=== PATIENT | male | born 1950 | race Hispanic/Latino ===

== ENCOUNTER 2020-08-31 10:46 | Emergency (ER) | payer MEDICARE ==
[2020-08-31] MEDS ORDERED: SODIUM CHLORIDE 0.9% 1000 ML 1,000 ML IV ONE (11:09)
--- NOTE | 2020-08-31 11:20 | Emergency Department Report ---
HPI - General Chief Complaint: Nausea/Vomiting/Diarrhea Time Seen by Provider: 08/31/20 10:58 - HPI HPI: This is a 70-year-old male who presents to the emergency department via EMS from home with complaint of a 1 month history of diarrhea with some rectal bleeding, that worsened since last night. Since July 28 the patient has been having some episodes of diarrhea and initially he says that it looked like it was "coffee grounds" but had a reddish tint to it. He has seen his primary care physician, Dr. Josue, a gastroenterology PA from a different practice than he is used to, and then yesterday saw his personal manager car, Dr. Vidhya lawson. The patient had a CT scan of the abdomen and pelvis a few weeks ago through [facility] outpatient imaging that sounds like it was colitis, but he does not have the results with him. The patient was placed on prednisone which has not been helping his symptoms. He saw Dr. Malone yesterday and was told to come to the hospital and have blood work done. Since eating some food last night the patient says that he has had at least 20 episodes of diarrhea, often with bright red blood. He has crampy abdominal pain just before he has to use the bathroom and then it goes away for about 15 minutes before the cycle restarts. The patient says that he has lost greater than 30 pounds over the past month. He has a past medical history of hypertension. He is a former smoker but has not smoked cigarettes for 30 years. Denies any alcohol dependence or illicit drug use. The patient spent 1 week in [facility] at the end of July for the symptoms and for what sounds like electrolyte abnormalities. ED Past Medical Hx - Social History Smoking Status: Former Smoker Substance Use Type: None - Medications Home Medications: Home Medications Medication Instructions Recorded Confirmed Last Taken Type Ciprofloxacin HCl 500 mg PO BID #14 tablet 08/31/20 Unknown Rx Diphenoxylat-Atrop 2.5-0.025/5 2.5 mg PO 4XD PRN 08/31/20 08/31/20 08/31/20 His tory Diphenoxylate/Atropine [Lomotil] 1 tab PO Q6H PRN #20 tablet 08/31/20 Unknown Rx Valsartan-Hctz 80-12.5 mg Tab 80 mg PO DAILY 08/31/20 08/31/20 3 Days Ago History ~08/28/20 Zoloft 50 mg PO DAILY 08/31/20 08/31/20 08/31/20 History ED Review of Systems ROS: Stated complaint: COLITIS/DIARRHEA/RECTAL BLEEDING Other details as noted in HPI Comment: All other systems reviewed and negative Constitutional: denies: chills, fever Eyes: denies: eye pain, vision change ENT: denies: ear pain, throat pain Respiratory: denies: cough, shortness of breath Cardiovascular: denies: chest pain, palpitations Gastrointestinal: abdominal pain, nausea, vomiting Genitourinary: denies: dysuria, discharge Musculoskeletal: denies: back pain, arthralgia Skin: denies: rash, lesions Neurological: denies: headache, weakness Physical Exam - Physical Exam Vital Signs: Vital Signs 08/31/20 08/31/20 08/31/20 11:03 11:06 11:07 Temperature 99.3 F Pulse Rate 118 H Respiratory 18 18 Rate Blood Pressure 130/87 [Right] O2 Sat by Pulse 99 Oximetry Physical Exam: GENERAL: The patient is well-developed well-nourished. HENT: Normocephalic. Atraumatic. Patient has moist mucous membranes. EYES: Extraocular motions are intact. NECK: Supple. Trachea is midline. CHEST/LUNGS: Clear to auscultation. There is no respiratory distress noted. HEART/CARDIOVASCULAR: Regular. There is no tachycardia. There is no murmur. ABDOMEN: Abdomen is soft, nontender. Patient has hyperactive bowel sounds. There is no abdominal distention. SKIN: Skin is warm and dry. NEURO: The patient is awake, alert, and oriented. The patient is cooperative. The patient has no focal neurologic deficits. Normal speech. MUSCULOSKELETAL: There is no tenderness or deformity. There is no limitation range of motion. ED Course Vital Signs 08/31/20 08/31/20 08/31/20 11:03 11:06 11:07 Temperature 99.3 F Pulse Rate 118 H Respiratory 18 18 Rate Blood Pressure 130/87 [Right] O2 Sat by Pulse 99 Oximetry - Consultations Consultation #1: 08/31/20 16:[address] Juarez, the manager car on-call for [place] [facility]. We discussed the patient's presentation today, his recent history, his recent admission to [facility]. Dr. Juarez is able to look up the results and consultation from [facility]. The patient had a negative C. difficile assay at [facility]. Dr. Juarez feels that the patient is safe for outpatient discharge. He agrees with the plan for the patient's Lomotil to be refilled, encourage the patient continue with his prednisone, and he can follow-up outpatient at the GI clinic. ED Medical Decision Making - Lab Data Result diagrams: 08/31/20 11:26 08/31/20 11:26 - Radiology Data Radiology results: report reviewed ABDOMEN 4 VIEW(S) INDICATION / CLINICAL INFORMATION: Abd pain. COMPARISON: None available. FINDINGS: TUBES / LINES: None. BOWEL GAS PATTERN: No dilated loops of small bowel. There appears to be thumbprinting throughout the colon with loss of normal folds. FREE AIR / EXTRALUMINAL GAS: None seen. ADDITIONAL FINDINGS: No acute findings on the included chest radiograph. IMPRESSION: 1. Abnormal appearance of the colon is suggestive of diffuse colitis greatest in the sigmoid. - Medical Decision Making This patient presents with a 1 month history of diarrhea and abdominal cramping pain. The diarrhea has increased over the past 2 days to the point where the patient is unable to do much else other than being around a toilet at his home. He has lost about 30 pounds over this past month. On examination the patient has hyperactive bowel sounds. The abdomen is soft, nondistended and nontoxic in appearance. Abdominal x-ray shows diffuse bowel gas that appears nonobstructive but was read by radiology as concern for diffuse colitis. Labs have been unremarkable including CBC, metabolic panel, lipase. Urinalysis does show a mild urinary tract infection. We have sent a stool sample down for C. difficile, stool culture and stool occult. I spoke with gastroenterology who agrees that the patient does not appear to require admission at this time. They recommended continuing his prednisone and refilling the Lomotil. As the patient had a mild urinary tract infection, he was placed on Cipro as this will treat his UTI as well as may help to treat the colitis. The patient has been instructed to follow-up outpatient with his primary care physician and gastroenterology. He has been instructed to increase his oral rehydration. He has also been instructed to return to the emergency department with any worsening of his symptoms or with any acute distress. Critical Care Time: No Critical care attestation.: If time is entered above; I have spent that time in minutes in the direct care of this critically ill patient, excluding procedure time. ED Disposition Clinical Impression: Colitis Diarrhea Qualifiers: Diarrhea type: unspecified type Qualified Code(s): R19.7 - Diarrhea, unspecified UTI (urinary tract infection) Qualifiers: Urinary tract infection type: acute cystitis Hematuria presence: without hematuria Qualified Code(s): N30.00 - Acute cystitis without hematuria Disposition: TO HOME OR SELFCARE Is pt being admited?: No Condition: Stable Instructions: Diarrhea, Adult, Urinary Tract Infection, Adult, Colitis Additional Instructions: Please take all medications as prescribed. Increase your oral rehydration. Please follow-up with your primary care physician and manager car. Return to the emergency department with any worsening of your symptoms, new or concerning symptoms not addressed during this current emergency department visit, or with any acute distress. Prescriptions: Ciprofloxacin HCl 500 mg PO BID #14 tablet Diphenoxylate/Atropine [Lomotil] 1 tab PO Q6H PRN #20 tablet PRN Reason: Diarrhea Referrals: BRUNO DUNLAP JR, MD [Primary Care Provider] - 3-5 Days JOSELUIS MALONE MD [Staff Physician] - 3-5 Days Time of Disposition: 16:33
[2020-08-31 12:23] LABS: Alanine Aminotransferase 31 units/L (7-56); Albumin 2.6 g/dL (3.9-5); BUN/Creatinine Ratio 12; Bilirubin,Direct 0.2 mg/dL (0-0.2); Blood Urea Nitrogen 11 mg/dL (9-20); Calcium 8.5 mg/dL (8.4-10.2); Hematocrit 37.6 % (35.5-45.6); Hemolysis Index 9; Mean Corpuscular HGB Conc 35 % (32-34); Mean Corpuscular Volume 85 fl (84-94); Platelet Count 229 K/mm3 (140-440); Red Blood Count 4.41 M/mm3 (3.65-5.03); Red Cell Distribution Width 13.8 % (13.2-15.2)
[2020-08-31 12:32] LABS: INR 1.16 (0.87-1.13)
--- NOTE | 2020-08-31 12:33 | XRay Report ---
ABDOMEN 4 VIEW(S) INDICATION / CLINICAL INFORMATION: Abd pain. COMPARISON: None available. FINDINGS: TUBES / LINES: None. BOWEL GAS PATTERN: No dilated loops of small bowel. There appears to be thumbprinting throughout the colon with loss of normal folds. FREE AIR / EXTRALUMINAL GAS: None seen. ADDITIONAL FINDINGS: No acute findings on the included chest radiograph. IMPRESSION: 1. Abnormal appearance of the colon is suggestive of diffuse colitis greatest in the sigmoid. Signer Name: Danish Harris MD Signed: 08/31/2020 12:28 PM Workstation Name: [id number]
[2020-08-31 16:00] LABS: Bilirubin,Urine NEG (Negative); Blood,Urine NEG (Negative); Calcium Oxalate Crystals,Urine FEW; Color,Urine Amber (Yellow); Mucus,Urine FEW /HPF; Urobilinogen,Urine < 2.0 mg/dL (<2.0)
[2020-08-31] MEDS ORDERED: levoFLOXacin 500 MG TAB PO ONE (16:06)
[2020-08-31] MEDS ORDERED: lamoTRIgine 25 MG TAB PO ONE (16:08)
[2020-08-31 16:40] VITALS: BP 132/79
[2020-08-31 17:24] LABS: Platelet Estimate Consistent w Auto; RBC Morphology Normal
[2020-08-31 17:27] LABS: Band Neutrophils # (Manual) 1.4 K/mm3; Total Cells Counted 100
== END 2020-08-31 16:55 | disposition home or self-care (01) ==
LOC: ED 10:46
DX: N39.0 Urinary tract infection, site not specified (principal); K52.9 Noninfective gastroenteritis and colitis, unspecified; Z87.891 Personal history of nicotine dependence; Z79.899 Other long term (current) drug therapy; Z88.8 Allergy status to other drugs, medicaments and biological substances
CPT/HCPCS: 36415; 74022; 80048; 80076; 81001; 82270; 83690; 85007; 85025; 85610; 87045; 87086; 87493; 96360; 96361; 99284; J7030